=== PATIENT | female | born 1970 | race Caucasian/White ===

== ENCOUNTER 2016-10-23 15:07 | Inpatient (IN) | payer OTHER ==
[~2016-10-23] VITALS: Ht 170.2 cm; Wt 72.7 kg
[~2016-10-23 15:07] MED LIST: ASEN10TA9 SL; CYCL10TA9 PO; DEXT20TA8 PO; GABA-502 PO; LAMO100T2 PO; LAMO25TA PO; PANT40TA3 PO; PROP20TA5 PO
[2016-10-23 15:26] VITALS: BP 140/91; PULSE 75; RESP 12; O2SAT 96
--- NOTE | 2016-10-23 17:42 | ED.REPORT ---
HPI-Rash / Abscess Date of Service Oct 23, 2016 ED Provider: Doc,Ed MD History of Present Illness: discharged from [facility] in [place] yesterday. sent home on keflex and states has been taking the keflex. abscess opened at [facility] on 10/18/2016. has been doing a lot of walking since discharge, staying with kids on couch at present. Laurita Nichole is primary care. denies drug use Nursing Notes Stated Complaint: RECHECK/SEPTIC Chief Complaint: Skin Rash/Abscess Nursing Notes Reviewed: Yes Allergies: Coded Allergies: acetaminophen (Verified Allergy, Intermediate, itch and burn, 10/23/16) cefaclor (Verified Allergy, Intermediate, vomiting, 10/23/16) oxycodone (Verified Allergy, Intermediate, RASH-TOLERATES HYDROCODONE, MORPHINE, AND DILAUDID, 05/02/15) divalproex sodium (Unverified Allergy, Unknown, 05/07/16) Scheduled ([silver hydrosol]) 30 SPRAYS ORAL DAILY Cephalexin (Cephalexin) 500 Mg Capsule 500 MG PO QID Dextroamphetamine/Amphetamine (Amphetamine Mixed Salts) 20 Mg Tablet 20 MG PO TID Gabapentin (Gabapentin) 400 Mg Capsule 400 MG PO TID Pantoprazole DR (Pantoprazole DR) 40 Mg Tablet.dr 40 MG PO DAILY Propranolol HCl (Propranolol HCl) 20 Mg Tablet 20 MG PO BID Trazodone (Trazodone) 50 Mg Tablet 50 MG PO HS Miscellaneous Medications ([excedrin]) Unknown Strength Unknown Dose PO General Time Seen by MD: 17:41 Chief Complaint Red area, Other (cellulitis left leg) Onset Occurred: 1 week ago Past Medical History Past Medical History Notes: Seen 04/30 in ED, started on clinda for dental pain Past Medical History Anxiety Ulcers Reports: GERD Past Surgical History Bariatric surgery Gastric bypass - 2003 uterine prolapse Smoking History Current Every Day Smoker, Heavy Tobacco Smoker Social History Alcohol Use: Denies alcohol use Drug Use: Denies drug use Other Social History: Good social support, 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 Ambulatory Status Independent Review of Systems Basic Review of Systems : No dysuria, No frequency Psychiatric: Normal thought content Physical Exam Initial Vital Signs Vital Signs (First) Date Time Temp Pulse Resp B/P Pulse Ox O2 Delivery O2 Flow Rate FiO2 10/23/16 15:26 37.0 75 12 140/91 96 Room Air Initial VS: Reviewed, Vital signs normal Head / Eyes: Atraumatic, Normocephalic, PERRL ENT: Mucous membranes moist, Conjunctiva normal, No scleral icterus Neck: Supple, Non-tender, Full range of motion Respiratory: Breath sounds normal, Clear to auscultation, No respiratory distress Cardiovascular: Regular rate & rhythm, Heart sounds normal, Intact distal pulses Abdomen / GI: Soft, Non-tender, No guarding, No rebound, No distention Back: No CVA tenderness Lymphatic: No lymphadenopathy Extremities: Vascular intact, Neuro intact, No swelling, No tenderness Neurologic: Alert, Oriented, Nonfocal Psychiatric: Mood/affect normal, Behavior normal, Normal thought content General/Constitutional: Awake, Alert, No acute distress, Well appearing, Well developed, Well hydrated, Well nourished, Cooperative, Not toxic appearing Rash / Lesion Notes: left upper thigh has open sore with fibrin formation with upper thigh with erthyma. Multiple enlarged lymph nodes in groin area. ENT: Atraumatic, Airway patent, Mucous membranes moist, Pharynx NL Respiratory / Chest: Atraumatic, Breath sounds NL, Breath sounds = bilat Cardiovascular: Heart rate NL, Regular rhythm, Heart sounds NL, No gallop Interpretation & Diagnostics Lab Results Interpretation Result Diagram: 10/23/16180910/23/16 181 Test 10/23/16 18:10 White Blood Count 9.1th/mm3 (3.8-10.1) Red Blood Count 3.91mil/mm3 (3.90-5.20) Hemoglobin 9.8g/dL (12.0-15.6) Hematocrit 31.9% (35.0-46.0) Mean Corpuscular Volume 81.6fL (81-100) Mean Corpuscular Hemoglobin 25.1pg (27.0-35.0) Mean Corpuscular Hemoglobin Concent 30.7% (32.0-37.0) Red Cell Distribution Width 22.2% (12.3-15.4) Platelet Count 346bil/L (150-400) Neutrophils (%) (Auto) 53% (40-74) Lymphocytes (%) (Auto) 24% (14-46) Monocytes (%) (Auto) 16% (4-12) Eosinophils (%) (Auto) 3% (0-5) Basophils (%) (Auto) 0% (0-3) Myelocytes % 4% (0-0) Sodium Level 141mEq/L (134-144) Potassium Level 4.2mEq/L (3.5-5.2) Chloride Level 101mEq/L (97-108) Carbon Dioxide Level 27mmol/L (18-29) Blood Urea Nitrogen 10mg/dL (6-24) Creatinine 0.61mg/dL (0.57-1.00) Estimat Glomerular Filtration Rate 152mL/min (>59) Glucose Level 97mg/dL (60-99) Lactic Acid Level 1.8mmol/L (0.4-2.0) Calcium Level 9.2mg/dL (8.5-10.1) Total Bilirubin 0.2mg/dL (0.0-1.2) Aspartate Amino Transf (AST/SGOT) 30U/L (0-50) Alanine Aminotransferase (ALT/SGPT) 25U/L (0-32) Alkaline Phosphatase 92U/L (25-150) Total Protein 6.5g/dL (6.4-8.4) Albumin 3.2g/dL (3.4-5.0) X-Ray Interpretation Xray Interpretation: PROCEDURE: X-RAY LEFT FEMUR, TWO VIEWS ([id number]) INDICATIONS: cellulitis increased swelling TECHNIQUE: 2 views of the femur were acquired. COMPARISON: None. FINDINGS: Bones: No fractures or dislocations. No suspicious bony lesions. Soft tissues: No suspicious soft tissue calcifications or masses. No radiopaque foreign body is seen artifact from overlying sheets are seen in the IMPRESSION: No bony abnormality or radiopaque foreign body is seen. No air in soft tissues is seen. Dictated by: Channing Flores M.D. on 10/23/2016 at 19:05 Approved by: Channing Flores M.D. on 10/23/2016 at 19:07 Re-Eval/Medical Decision Med Decision/Clinical Course 46 year old female presents for evualation for left leg cellulitis after being discharged form [facility] yesterday for same. Patient states she has been taking her oral antibiotics. The erthyma on the left thigh is almost to the knee. The site has almost tripled in size acording to the orginal marking. Many enlarged lymph nodes in groin on the left side. When asked is she injected into site patient denies. Behavior may suggest otherwise. Body with pick sores. No sign of exczema or insect bite. Discharge & Departure Departure Notes care turned over to Dr. Keller, awaiting transport upstairs 2109 Impression: Primary Impression: Cellulitis Disposition: ADMITTED TO HOSPITAL Referrals: Laurita Nichole PA-C (PCP) EDSupervising Provider for APC: Poli Keller MD copies to: Laurita Nichole PA-C, Sue ARNP Oct 23, 2016 17:42
[2016-10-23 18:31] LABS: Mean Corpuscular Hemoglobin 25.1 pg (27.0-35.0); Mean Corpuscular Volume 81.6 fL (81-100)
[2016-10-23 18:35] LABS: Platelet Count 346 bil/L (150-400)
[2016-10-23] MEDS ORDERED: Vancomycin Dose per Pharmacist XX ONE (19:05)
--- NOTE | 2016-10-23 19:08 | DRSVH ---
PROCEDURE: X-RAY LEFT FEMUR, TWO VIEWS ([id number]) INDICATIONS: cellulitis increased swelling TECHNIQUE: 2 views of the femur were acquired. COMPARISON: None. FINDINGS: Bones: No fractures or dislocations. No suspicious bony lesions. Soft tissues: No suspicious soft tissue calcifications or masses. No radiopaque foreign body is see n artifact from overlying sheets are seen in the IMPRESSION: No bony abnormality or radiopaque foreign body is seen. No air in soft tissues is seen. Dictated by: Channing Flores M.D. on 10/23/2016 at 19:05 Approved by: Channing Flores M.D. on 10/23/2016 at 19:07
[2016-10-23] MEDS ORDERED: Vancomycin Inj 1,500 MG in 0.9% Sodium Chloride 500 ML IV ONE (19:10)
[2016-10-23 19:24] LABS: BASOPHILS % (AUTO) 0 % (0-3); EOSINOPHILS % (AUTO) 3 % (0-5); MONOCYTES % (AUTO) 16 % (4-12); NEUTROPHILS % (AUTO) 53 % (40-74)
[2016-10-23] MEDS: Vancomycin Dose per Pharmacist XX SCH (19:55)
[2016-10-23] MEDS ORDERED: Alum-Mag Hydrox-Simeth 30 mL Suspension PO PRN (19:55)
[2016-10-23 20:03] VITALS: BP 142/88; PULSE 69; RESP 18; O2SAT 100
--- NOTE | 2016-10-23 20:42 | PCM.HPMED ---
Subjective Date of Service Oct 23, 2016 Primary Provider: Admitting Physician: Alexsandra Blakely DO Primary Care Physician: Laurita Nichole PA-C Attending Physician: Alexsandra Blakely DO Admit Status: From the Emergency Department Chief Complaint: worsening lower extremity erythema following discharge from OSH History of Present Illness: 46yoF with history of PTSD, ADD, GERD presenting following discharge from [facility] with worsening left lower limb cellulitis s/p I&D. As per OSH HPI patient presented 10/18 (discharge 10/22) with complaints of myalgias and "abscesses" with main concern for left thigh abscess. As per report she used methamphetamine last 10/16 however patient denies this on current admission. Labs at this time were significant for leukocytosis (30k) with lactic acid 1.2 declining to 0.7, sodium 129 hgb 10. Culture results are not available from outside records. MRSA culture was negative, improved on ceftriaxone, and patient was discharged on keflex. Following discharge patient states that she went home and ate dinner. She took her keflex and when she awoke the next morning her left left had increased edema and erythema. She also notes worsening myalgias. She denies fevers, chills, nausea, vomiting, changes in bowel movements or urination. Review of Systems: complete review of systems obtained. positive as per HPI otherwise negative. Allergies Coded Allergies: cefaclor (Verified Allergy, Intermediate, vomiting, 10/23/16) oxycodone (Verified Allergy, Intermediate, RASH-TOLERATES HYDROCODONE, MORPHINE, AND DILAUDID, 05/02/15) divalproex sodium (Unverified Allergy, Unknown, 05/07/16) Home Medications Propranolol Lamotrigine Adderall Protonix Trazodone PMH PTSD ADD Hypotension GERD Per outside records IVDU however patient denies Distant history of methamphetamine use Surgical History Gastric bypass Breast augmentation Tubal ligation Family History Father history of boils History of PTSD / ADD Social History Occupation: unemployed, SSI application pe Hx Alcohol Use: No Hx Substance Use: No (Do smoke marijuana daily/for back pain) Smoking Status: Current Every Day Smoker, Heavy Tobacco Smoker Living Arrangement: with Family (Patient lives with daughter ) Exam Vital Signs Vital Sign - Last Date Time Temp Pulse Resp B/P Pulse Ox O2 Delivery O2 Flow Rate FiO2 10/23/16 20:03 36.7 69 18 142/88 100 Room Air Exam General: Alert, Oriented x3, no acute distress Eyes: PERRLA, sclera anicteric Mouth: moist mucous membranes, poor dentition Neck: supple, trachea midline, no thyromegaly Chest and lungs: CTA and percussion bilateral, no adventitious breath sounds, no crackles, no wheeze, good resp effort Cardiovascular: Normal S1 and S2, no M/R/G, regular rate and rhythm Pulses: Radial (present and equal), Dorsalis pedi (present and equal) MSK: As per below Extremities: left lower extremity 0-1+ pitting edema, left thight with abscess, phlegmon present, border present x2, erythema receding from larger, warm to touch, no crepitus, mild pain to palpation Skin: large tattoos upper extremities and back, left lower ext as above Neuro: grossly intact Psych: normal affect Lab and Diagnostics Result Diagram: 10/23/16180910/23/161809 X-Rays, CTs and MRIs Patient Name: CITLALY COLBY MR#: [id number] Location[place] [facility] [place]ing Phys: Criselda Gallo Date of Service: 10/23/16 1754 PROCEDURE: X-RAY LEFT FEMUR, TWO VIEWS ([id number]) INDICATIONS: cellulitis increased swelling TECHNIQUE: 2 views of the femur were acquired. COMPARISON: None. FINDINGS: Bones: No fractures or dislocations. No suspicious bony lesions. Soft tissues: No suspicious soft tissue calcifications or masses. No radiopaque foreign body is seen artifact from overlying sheets are seen in the IMPRESSION: No bony abnormality or radiopaque foreign body is seen. No air in soft tissues is seen. Assessment & Plan 46yoF with history of PTSD, ADD, GERD presenting following discharge from [facility] with worsening left lower limb cellulitis s/p I&D. Cellulitis, acute, POA -not meeting sepsis criteria -discharged day prior to presentation from outside facility (admit [facility] 10/18-10/22) -records reviewed and available in chart, call for culture results (AM team), MRSA screen was negative at OSH -given vancomycin, ceftriaxone and discharged on keflex with subsequent worsening of cellulitis -improvement seen following admission, pain is not out of proportion to exam -vancomycin started in ED, continue, pharmacy to dose -left lower extremity US in am -follow up blood cultures, consider CT scan with clinical worsening Normocytic anemia, unknown chronicity -history of anemia as per outside records -remains stable from recent admission -continue to monitor PTSD / ADD, chronic -continue lamotrigine, adderall -holding propranolol given h/o hypotension GERD, chronic -continue protonix Tobacco dependence, chronic -discussed cessation with patient, she wishes to quit -cut back to 0.5 pack per day -nicotine patch available upon request MED REC - Review required. Not consistent with patient stated medications. i.e. lamotrigine not listed on med rec completed prior to admission Pain Evaluation: Adequate Pain Control GI Prophylaxis: Proton Pump Inhibitor VTE Prophylaxis: Sub-Q Heparin (Unfractionated) Resuscitation Status: CPR: Attempt Resuscitation Alexsandra Blakely DO Oct 23, 2016 20:42
[2016-10-23] MEDS ORDERED: CEPH500C PO (21:08)
[2016-10-23] MEDS ORDERED: GABA-504 PO (21:08)
[2016-10-23] MEDS ORDERED: [UNRECOGNIZED DRUG - OTHER] ORAL (21:08)
[2016-10-23] MEDS ORDERED: excedrin PO (21:08)
[2016-10-23] MEDS ORDERED: TRAZ-115 PO (21:08)
[2016-10-23 21:25] VITALS: BP 142/88; PULSE 69; RESP 18; O2SAT 100
--- NOTE | 2016-10-23 21:27 | PCM.CONPHA ---
Subjective Date of Service: Oct 23, 2016 worsening lower extremity erythema following discharge from OSH Reason for Pharmacy Consult: Vancomycin Dosing Objective Vital Signs Date Time Temp Pulse Resp B/P Pulse Ox O2 Delivery O2 Flow Rate FiO2 10/23/16 20:03 36.7 69 18 142/88 100 Room Air 10/23/16 15:26 37.0 75 12 140/91 96 Room Air Weight (Kilograms): 67.27 Height (Feet): 5 Height (Inches): 7.00 Test 10/23/16 18:10 White Blood Count 9.1th/mm3 (3.8-10.1) Red Blood Count 3.91mil/mm3 (3.90-5.20) Hemoglobin 9.8g/dL (12.0-15.6) Hematocrit 31.9% (35.0-46.0) Mean Corpuscular Volume 81.6fL (81-100) Mean Corpuscular Hemoglobin 25.1pg (27.0-35.0) Mean Corpuscular Hemoglobin Concent 30.7% (32.0-37.0) Red Cell Distribution Width 22.2% (12.3-15.4) Platelet Count 346bil/L (150-400) Neutrophils (%) (Auto) 53% (40-74) Lymphocytes (%) (Auto) 24% (14-46) Monocytes (%) (Auto) 16% (4-12) Eosinophils (%) (Auto) 3% (0-5) Basophils (%) (Auto) 0% (0-3) Myelocytes % 4% (0-0) Sodium Level 141mEq/L (134-144) Potassium Level 4.2mEq/L (3.5-5.2) Chloride Level 101mEq/L (97-108) Carbon Dioxide Level 27mmol/L (18-29) Blood Urea Nitrogen 10mg/dL (6-24) Creatinine 0.61mg/dL (0.57-1.00) Estimat Glomerular Filtration Rate 152mL/min (>59) Glucose Level 97mg/dL (60-99) Lactic Acid Level 1.8mmol/L (0.4-2.0) Calcium Level 9.2mg/dL (8.5-10.1) Total Bilirubin 0.2mg/dL (0.0-1.2) Aspartate Amino Transf (AST/SGOT) 30U/L (0-50) Alanine Aminotransferase (ALT/SGPT) 25U/L (0-32) Alkaline Phosphatase 92U/L (25-150) Total Protein 6.5g/dL (6.4-8.4) Albumin 3.2g/dL (3.4-5.0) Assessment/Plan Assessment/Plan Vancomycin dosing per pharmacy Indication: abscess, possible sepsis Vancomcyin trough goal: 15-20 SCr: 0.61 Weight: 67.27 kg Height: 170.18 cm Loading dose of vancomcyin 1500 mg given at 1930. Maintenance dose -- give vancomycin 1250 mg Q12H. Trough ordered for 10/25/16 at 0700 prior to the 4th dose. Pharmacy to continue to monitor and dose vancomycin. Thank you, Tez Alarcon Pharmacist Tez Alarcon Oct 23, 2016 21:27
[2016-10-23 21:59] VITALS: BP 128/81; PULSE 72; RESP 18; O2SAT 99
--- NOTE | 2016-10-23 22:00 | NUR ---
Admit Pt brought by [facility] ED to floor on stretcher at 2140. Pt ambulated to bed. Pt rates pain at 8/10. Report Given by Swapnil Clinton RN.
[2016-10-24] VITALS (12 sets, daily range): BP systolic 128–161; BP diastolic 73–98; PULSE 61–80; RESP 12–20; O2SAT 96–100
[2016-10-24] MEDS: Heparin 5,000 Unit/mL Inj SUBQ SCH ×3 (00:53→16:18)
--- NOTE | 2016-10-24 06:06 | NUR ---
Tele Report from [employer] that patient had 15 beats of V Tach at 0554. Pt was in the bathroom at the time. Patient had zero complaints and VSS, BP 159/89. MD katz. Addendum: 10/24/16 at 0616 by CORAL WEBSTER RN Pt now complaining of 10/10 upper back pain. code number stamper ordered STAT 12 lead which is occurring now. Addendum: 10/24/16 at 0650 by CORAL WEBSTER RN ordered nitro and to inform of results. Results are that the Pt had 8/10 back pain before admin of nitro. 2-4 minutes after 1 dose nitro patient reported 0/10 back pain.
[2016-10-24 07:28] LABS: Mean Corpuscular Hemoglobin 25.1 pg (27.0-35.0); Mean Corpuscular Volume 81.5 fL (81-100); Platelet Count 331 bil/L (150-400)
[2016-10-24] MEDS: Vancomycin Dose per Pharmacist XX SCH (08:30)
[2016-10-24 08:38] LABS: BASOPHILS % (AUTO) 0 % (0-3); EOSINOPHILS % (AUTO) 6 % (0-5); MONOCYTES % (AUTO) 11 % (4-12); NEUTROPHILS % (AUTO) 53 % (40-74)
--- NOTE | 2016-10-24 09:13 | PCM.PNMED ---
Subjective Date of Service Oct 24, 2016 Subjective Pt reports the rash on her left thigh is improved. She denies any fever. This morning she does complain of a severe pain in between her shoulder blades which seems to be radiating from the back of her neck down. She denies any chest pain , shortness of breath, nausea, vomiting, abdominal pain, and palpitations. No other complaints or concerns at this time. Exam Vital Signs Vital Sign - Last Date Time Temp Pulse Resp B/P Pulse Ox O2 Delivery O2 Flow Rate FiO2 10/24/16 08:55 63 10/24/16 06:08 36.5 19 159/89 100 10/24/16 02:46 Room Air Intake and Output 10/23/16 10/23/16 10/24/16 Cumulative From/Thru 15:00 23:00 07:00 10/23/16 15:26 - 10/24/16 06:08 Intake Total 1300 ml 1300 ml Balance 1300 ml 1300 ml Intake Oral 1050 ml 1050 ml IV Total 250 ml 250 ml # Voids 3 3 Exam GENERAL: Pt appears to be in mild distress from her back pain, Pt laying in bed comfortably HEENT: AT/NC, PERRLA, EOMI, Mucus Membranes are moist CARDIAC: RRR; No M/R/G PULM: CTAB; No wheezes or rhonchi bilaterally ABD: Soft, Nontender, Nondistended, Positive bowel sounds in all quadrants, No Hepatosplenomegaly appreciated EXT: No C/C/E; No calf tenderness bilaterally SKIN: Large area of erythema with overlying calor and mild induration over the left anterior and medial thigh, no area of fluctuance noted NEURO: Alert and oriented x3; Following all commands PSYCH: Normal mood and affect IVs and Medications Medications Reviewed: Medications were reviewed in detail Lab and Diagnostics Result Diagram: 10/24/1662410/24/16624 X-Rays, CTs and MRIs Patient Name: CITLALY COLBY MR#: [id number] Location[place] [facility] [place] Ordering Phys: Criselda Gallo Date of Service: 10/23/16 712 PROCEDURE: X-RAY LEFT FEMUR, TWO VIEWS ([id number]) INDICATIONS: cellulitis increased swelling TECHNIQUE: 2 views of the femur were acquired. COMPARISON: None. FINDINGS: Bones: No fractures or dislocations. No suspicious bony lesions. Soft tissues: No suspicious soft tissue calcifications or masses. No radiopaque foreign body is seen artifact from overlying sheets are seen in the IMPRESSION: No bony abnormality or radiopaque foreign body is seen. No air in soft tissues is seen. Assessment & Plan 46yoF with history of PTSD, ADD, GERD presenting following discharge from [facility] with worsening left lower limb cellulitis s/p I&D. 1. Cellulitis, Left Lower Extremity - Continue IV Vancomycin - Check Procalcitonin and CRP now - Repeat CBC with diff in AM - Elevated LLE while pt is laying down or sitting - LLE US today - Blood cultures pending 2. Chest Pain, Acute - Pt is having pain in between her shoulder blades - STAT EKG reveals no EKG changes indicative of myocardial ischemia - Will give Aspirin 324 mg now - Will check Troponin q 6 hours x4 - Will order a CT angiogram of the chest to rule out aortic dissection and PE - Continue telemetry monitoring 3. Anemia, Chronic - Related to Methamphetamine use chronically? - Monitor 4. PTSD and ADD - Continue home Lamictal and Adderall 5. GERD - Continue Protonix 6. Methamphetamine Abuse - Pt counseled to quit on admission GI Prophylaxis: Proton Pump Inhibitor VTE Prophylaxis: Sub-Q Heparin (Unfractionated) Resuscitation Status: CPR: Attempt Resuscitation Dave Mead MD Oct 24, 2016 09:12
[2016-10-24] MEDS: Vancomycin Inj 1,250 MG in 0.9% Sodium Chloride 250 ML IV SCH ×2 (09:14→20:26)
[2016-10-24] MEDS: Amphetamines (Mixed) 20 mg Tablet PO SCH ×3 (09:15→20:26)
[2016-10-24] MEDS: Pantoprazole 40 mg ER24 Tablet PO SCH (09:15)
--- NOTE | 2016-10-24 10:12 | NUR ---
Back pain 0815 pt c/o 04/26 sharp pain between shoulder blades. SR 72 per nursery technician, BP 161/92 100% on RA. Lab called to draw trop per prior order. paged. Per , no repeat EKG at this time, to give nitro. 3 doses of nitro given with little relief. paged. To give morphine 2mg IV now. Morphine given with relief to 10/25. MD saw pt at bedside. 325mg ASA x1 given. Stat CT angio ordered. Pt VSS at 0850, SR per tele. Pt appearing more comfortable. To continue to monitor. Pt down to CT at 0940. Trop negative. Pt stable on return from CT. Addendum: 10/24/16 at 1125 by JAYLON LOWE RN Pt c/o of continued back pain 01/24 at 1110. Per , no new orders, to continue with pain meds as ordered and as needed.
--- NOTE | 2016-10-24 10:38 | DRSVH ---
PROCEDURE: CT ANG CHEST/ABD W/WO CONTRAST ([id number]) INDICATIONS: Rule out Aortic Dissection and PE TECHNIQUE: Precontrast 5 mm thick sections acquired from the lung apices to the iliac crests. After the adminis tration of intravenous contrast, 3 mm thick sections again acquired from the lung apices to the iliac crests. 3-dimensional maximum intensity projection (MIP) oblique sagittal and coronal reformats wer e then acquired, and/or 3-dimensional volume rendering reformats. For radiation dose reduction, the following was used: automated exposure control. COMPARISON: None. FINDINGS: Image quality: Excellent. AORTA: Normal appearance. No evidence of dissection or aneurysm. No periaortic hemorrhage seen. CHEST: Lungs and pleura: No acute airspace opacities. Minimal scarring/atelectasis seen in the right lung b ase No pleural effusions or pneumothorax. Central and peripheral airways are patent and normal in c aliber. Mediastinum: Heart size is normal. No pericardial effusion. No mediastinal or hilar adenopathy by size criteria. Central pulmonary arteries are normal in size. No filling defects to suggest pulmonar y embolism Esophagus is normal in caliber. No hiatal hernias. Bones and chest wall: No axillary adenopathy by size criteria. Bilateral breast prostheses. No romero spicious bony lesions. No vertebral body compression fractures. ABDOMEN: Vasculature: Celiac trunk and mesenteric arteries are patent. Renal arteries are also patent. Solid organs: Liver and spleen are normal in size. Gallbladder negative. Biliary system is non dil ated. Pancreas enhances normally. No adrenal nodules. Both kidneys are normal in size and enhancem ent, without hydronephrosis. Peritoneum and bowel: No free fluid or air. Bowel loops are normal in caliber and wall thickness. Nodes and vessels: No retroperitoneal or mesenteric adenopathy by size criteria. Inferior vena cava is normal in morphology. Bones: No suspicious bony lesions. No vertebral body compression fractures. Miscellaneous: No ventral hernias. IMPRESSION: Negative examination. No evidence of aortic dissection. No evidence of pulmonary embolism. Dictated by: Yobany Garcia M.D. on 10/24/2016 at 10:15 Approved by: Yobany Garcia M.D. on 10/24/2016 at 10:36
[2016-10-24] MEDS: Ondansetron 2 mg/mL 2 mL Inj IVPUSH PRN (11:17)
--- NOTE | 2016-10-24 11:25 | NUR ---
Rash Per MD, no new orders for facial rash around mouth. To continue to monitor.
--- NOTE | 2016-10-24 11:50 | DRSVH ---
PROCEDURE: US EXTREMITY SONOGRAM LIMITED ([id number]) INDICATIONS: abscess TECHNIQUE: Real-time scanning was performed of the left lower extremity, with image documentation. COMPARISON: None. FINDINGS: There is subcutaneous edema. No focal fluid collection to suggest abscess IMPRESSION: Subcutaneous edema without evidence for abscess. Dictated by: Yobany Garcia M.D. on 10/24/2016 at 11:47 Approved by: Yobany Garcia M.D. on 10/24/2016 at 11:48
--- NOTE | 2016-10-24 14:30 | NUR ---
Assumed care of patient Pt currently sleeping.
--- NOTE | 2016-10-24 15:53 | NUR ---
Social Work Note: Screen Note Data& Assessment: EMR reviewed. Patient is a 46 y/o female admitted on 10/23/16 for Left Leg Cellulitis. Pt has [employer] for insurance coverage and sees Laurita Nichole PA-C for primary care. Pt lives with family and is independent at baseline. Pt is currently independent in her room. No discharge needs identified at this time. SW to continue to follow if any needs arise. Plan: Anticipated discharge home via POV when medically ready. No discharge needs identified at this time. SW to continue to follow if any needs arise. Margot Whittaker, SOFI, ACM
[2016-10-25] VITALS (7 sets, daily range): BP systolic 131–143; BP diastolic 73–86; PULSE 65–92; RESP 14–18; O2SAT 95–99
[2016-10-25] MEDS: Heparin 5,000 Unit/mL Inj SUBQ SCH ×3 (00:35→16:43)
--- NOTE | 2016-10-25 03:18 | NUR ---
Pain/Anxiety Pt has c/o severe pain tonight from tense muscles in neck and shoulders, morphine and tramadol somewhat effective. Pt has expressed extreme anxiety about current situation and personal issues and concerns about getting out of [facility]. Pt mentioned Dr Heidy Allen at [facility], pt states it is important that they are contacted. Pt also expresses concern about not being on lamotrigine since admit.
[2016-10-25] MEDS ORDERED: Vancomycin Serum Trough XX ONE (07:00)
[2016-10-25 07:37] LABS: Mean Corpuscular Hemoglobin 24.6 pg (27.0-35.0); Mean Corpuscular Volume 78.6 fL (81-100); Platelet Count 256 bil/L (150-400)
[2016-10-25] MEDS: Amphetamines (Mixed) 20 mg Tablet PO SCH ×3 (08:09→20:46)
[2016-10-25] MEDS: Pantoprazole 40 mg ER24 Tablet PO SCH (08:10)
[2016-10-25] MEDS: Vancomycin Dose per Pharmacist XX SCH (08:30)
[2016-10-25 08:37] LABS: BASOPHILS % (AUTO) 1 % (0-3); EOSINOPHILS % (AUTO) 6 % (0-5); MONOCYTES % (AUTO) 12 % (4-12); NEUTROPHILS % (AUTO) 56 % (40-74)
[2016-10-25] MEDS: Vancomycin Inj 1,250 MG in 0.9% Sodium Chloride 250 ML IV SCH ×2 (08:53→20:46)
[2016-10-25] MEDS: Polyethylene Glycol (PEG) 17 Gm Powder PO PRN (09:47)
--- NOTE | 2016-10-25 10:07 | PCM.PNMED ---
Subjective Date of Service Oct 25, 2016 Subjective Pt reports her left thigh appears and feels better. She denies any fever. No other complaints or concerns at this time. Exam Vital Signs Vital Sign - Last Date Time Temp Pulse Resp B/P Pulse Ox O2 Delivery O2 Flow Rate FiO2 10/25/16 09:41 66 10/25/16 06:11 36.5 16 143/82 97 Room Air 10/24/16 17:19 Intake and Output 10/24/16 10/24/16 10/25/16 Cumulative From/Thru 15:00 23:00 07:00 10/23/16 15:26 - 10/25/16 06:11 Intake Total 1020 ml 1155 ml 3475 ml Balance 1020 ml 1155 ml 3475 ml Intake Oral 1020 ml 600 ml 2670 ml IV Total 555 ml 805 ml # Voids 5 8 Exam GENERAL: NAD, Pt laying in bed comfortably HEENT: AT/NC, PERRLA, EOMI, Mucus Membranes are moist CARDIAC: RRR; No M/R/G PULM: CTAB; No wheezes or rhonchi bilaterally EXT: No C/C/E; No calf tenderness bilaterally SKIN: Erythema with mild overlying calor over the rosanna-medial left thigh NEURO: Alert and oriented x3; Following all commands IVs and Medications Medications Reviewed: Medications were reviewed in detail Lab and Diagnostics Result Diagram: 10/25/1670410/25/16704 X-Rays, CTs and MRIs Patient Name: CITLALY COLBY MR#: [id number] [place] [facility] [place] Phys: Criselda Gallo Date of Service: 10/23/161753 PROCEDURE: X-RAY LEFT FEMUR, TWO VIEWS ([id number]) INDICATIONS: cellulitis increased swelling TECHNIQUE: 2 views of the femur were acquired. COMPARISON: None. FINDINGS: Bones: No fractures or dislocations. No suspicious bony lesions. Soft tissues: No suspicious soft tissue calcifications or masses. No radiopaque foreign body is seen artifact from overlying sheets are seen in the IMPRESSION: No bony abnormality or radiopaque foreign body is seen. No air in soft tissues is seen. Assessment & Plan 46yoF with history of PTSD, ADD, GERD presenting following discharge from [facility] with worsening left lower limb cellulitis s/p I&D. 1. Cellulitis, Left Lower Extremity - Continue IV Vancomycin for 1 more day, and consider switching to PO ABX in AM - Repeat CBC with diff in AM - Elevated LLE while pt is laying down or sitting - LLE US today - Blood cultures negative thus far 2. Chest Pain, Acute - Resolved - Non cardiac - Pt is having pain in between her shoulder blades - STAT EKG revealed no EKG changes indicative of myocardial ischemia - Troponin was negative x4 - CT Angiogram of the chest was negative for PE and aortic dissection 3. Anemia, Chronic - Stable - Related to Methamphetamine use chronically? - Monitor 4. PTSD and ADD - Continue home Lamictal and Adderall 5. GERD - Continue Protonix 6. Methamphetamine Abuse - Pt counseled to quit on admission 7. Disposition - Anticipate discharge to home in 2 days or so GI Prophylaxis: Proton Pump Inhibitor VTE Prophylaxis: Sub-Q Heparin (Unfractionated) Resuscitation Status: CPR: Attempt Resuscitation Dave Mead MD Oct 25, 2016 10:07
--- NOTE | 2016-10-25 10:50 | NUR ---
Social Work-readiness for discharge: Data:EMR reviewed. Pt is on day 2 of hospitalization for left leg cellulitis per H&P. Pt is not medically stable anticipate 1-2 days. SW met with pt at bedside, SW role explained. Pt confirms that she lives with her daughter and will return there at discharge. Pt is independent at baseline and has no HH/SNF history. SW discussed DPOA/ advanced directive, pt states she has not completed this and is not interested in any information at this time. SW discussed pt's Meth use. Pt confirms that she only uses occasionally and does not think that this is a problem. Pt states she is not interested in any resources at this time. Pt is interested in getting a copy of medical records. SW provided pt with form to fill out for this. Pt's daughter to provide transport home. SW provided phone number and plan on white board in room. No anticipated discharge needs. SW will continue to follow if needs arise. Assessment:Pt who is independent at baseline. Plan:Pt to discharge home when medically stable via pOV. Pt declining any CD resources at this time. No anticipated discharge needs. SW will continue to follow if needs arise. FRANCISCO Brown
--- NOTE | 2016-10-25 11:18 | PCM.PHAPRO ---
Progress worsening lower extremity erythema following discharge from OSH Vancomycin trough returned within range at 14.8. Next trough on 10/28 at 0700. Pharmacy will continue to monitor. Terrell Cunningham Pharm.D Oct 25, 2016 11:17
[2016-10-25] MEDS: Ondansetron 2 mg/mL 2 mL Inj IVPUSH PRN (11:32)
--- NOTE | 2016-10-25 13:00 | NUR ---
Migraine Pt has been c/o a migraine OLIVIER since this Am. Morphine and Ultram were ineffective. Pt reports that pain has decreased from 10/10 to 5/10 after APAP. Pt is also using a K pad, which is helping. Pt appears much more comfortable and is now eating for the first time today. Will continue to monitor.
--- NOTE | 2016-10-25 16:00 | NUR ---
Panic attack Pt started to have a panic attack related to family issues and possible homelessness. Pt unable to calm down on her own, crying hysterically. Hospitalist paged for medication. Social work notified. Pt does not wish to speak with a insulation applicator at this time.
[2016-10-25] MEDS: LORazepam 0.5 mg Tablet PO PRN (16:43)
[2016-10-26] VITALS (8 sets, daily range): BP systolic 137–151; BP diastolic 80–92; PULSE 70–92; RESP 16–20; O2SAT 96–100
[2016-10-26] MEDS: Heparin 5,000 Unit/mL Inj SUBQ SCH ×3 (00:41→16:32)
--- NOTE | 2016-10-26 04:30 | NUR ---
Anxiety/Pain Pt has had very good pain and anxiety control tonight. Pt has been able to sleep well. Pt hasn't had any migraine and is primarily requesting morphine regularly. Pt feels more in control about current situation, and is eager to speak with case management and start putting her life back together.
[2016-10-26] MEDS: Ondansetron 2 mg/mL 2 mL Inj IVPUSH PRN (06:28)
[2016-10-26] MEDS: LORazepam 0.5 mg Tablet PO PRN ×2 (06:28→20:29)
[2016-10-26 06:40] LABS: Mean Corpuscular Volume 80.8 fL (81-100); Platelet Count 361 bil/L (150-400)
[2016-10-26 07:54] LABS: NEUTROPHILS % (AUTO) 57 % (40-74)
[2016-10-26 07:55] LABS: BASOPHILS % (AUTO) 0 % (0-3); EOSINOPHILS % (AUTO) 5 % (0-5); MONOCYTES % (AUTO) 10 % (4-12)
[2016-10-26] MEDS: Vancomycin Dose per Pharmacist XX SCH (08:30)
[2016-10-26] MEDS: Amphetamines (Mixed) 20 mg Tablet PO SCH ×3 (09:22→20:29)
[2016-10-26] MEDS: Pantoprazole 40 mg ER24 Tablet PO SCH (09:22)
[2016-10-26] MEDS: Vancomycin Inj 1,250 MG in 0.9% Sodium Chloride 250 ML IV SCH ×2 (09:30→20:29)
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
--- NOTE | 2016-10-26 14:20 | PCM.PNMED ---
Subjective Date of Service Oct 26, 2016 Subjective Left thigh feels better but is still swollen and painful. No fevers or chills, nausea or diarrhea. No abdomen or chest pain. No cough. No overnight events. Exam Vital Signs Vital Sign - Last Date Time Temp Pulse Resp B/P Pulse Ox O2 Delivery O2 Flow Rate FiO2 10/26/16 12:30 92 10/26/16 10:58 36.2 20 149/85 96 Room Air 10/24/16 17:19 Intake and Output 10/25/16 10/25/16 10/26/16 Cumulative From/Thru 15:00 23:00 07:00 10/23/16 15:26 - 10/26/16 06:22 Intake Total 1640 ml 683 ml 5798 ml Balance 1640 ml 683 ml 5798 ml Intake Oral 1440 ml 400 ml 4510 ml IV Total 200 ml 283 ml 1288 ml # Voids 4 4 16 Exam Alert and oriented. No distress. Fluent speech. Lungs are clear with ormal effort heart regular without murmur abdomen soft and non tender. There is no [edal edema. Left thingh can filling and closing machine tender and indurated. Tenders. No obvious fluctuance. Multiple skin excoriations and tattoos. IVs and Medications Medications Reviewed: Medications were reviewed in detail Lab and Diagnostics Result Diagram: 10/26/16 0555 10/26/16 0555 X-Rays, CTs and MRIs Patient Name: CITLLAY COLBY MR#: [id number] [place] [facility] [place] Phys: Criselda Gallo Date of Service: 10/23/16 488 PROCEDURE: X-RAY LEFT FEMUR, TWO VIEWS ([id number]) INDICATIONS: cellulitis increased swelling TECHNIQUE: 2 views of the femur were acquired. COMPARISON: None. FINDINGS: Bones: No fractures or dislocations. No suspicious bony lesions. Soft tissues: No suspicious soft tissue calcifications or masses. No radiopaque foreign body is seen artifact from overlying sheets are seen in the IMPRESSION: No bony abnormality or radiopaque foreign body is seen. No air in soft tissues is seen. Assessment & Plan 46yoF with history of PTSD, ADD, GERD presenting following discharge from [facility] with worsening left lower limb cellulitis s/p I&D. #. Cellulitis, Left Lower Extremity. POA. Improving. - Continue IV Vancomycin - follow CBC with diff daily - Elevated LLE while pt is laying down or sitting - LLE US today - Blood cultures negative thus far #. Chest Pain, Acute. POA. Resolved. - Resolved - Non cardiac - Pt is having pain in between her shoulder blades - STAT EKG revealed no EKG changes indicative of myocardial ischemia - Troponin was negative x4 - CT Angiogram of the chest was negative for PE and aortic dissection No further work up. #. Anemia, Chronic. POA - Stable - Related to Methamphetamine use chronically? - Monitor No further work up. #. PTSD and ADD, POA. - Continue home Lamictal and Adderall #. GERD - Continue Protonix #. Methamphetamine Abuse - Pt counseled to quit on admission #. Disposition - Anticipate discharge to home in 2 days or so Pain Evaluation: Adequate Pain Control GI Prophylaxis: Proton Pump Inhibitor VTE Prophylaxis: Sub-Q Heparin (Unfractionated) Resuscitation Status: CPR: Attempt Resuscitation Junaid Guzman MD Oct 26, 2016 14:20
[2016-10-26] MEDS: Polyethylene Glycol (PEG) 17 Gm Powder PO PRN (17:09)
--- NOTE | 2016-10-26 18:39 | NUR ---
Pain- Complained of generalized discomfort in leg, neck and back. Denies headache. Requesting pain med, which doesn't totally take away discomfort. Patient states, "I have pain from Fibromyalgia." Up ad beth in room and appears to be steady on feet. Patient talking about making plans to find housing, contacting [facility]. doctor,etc. after discharge.
[2016-10-27] MEDS: Heparin 5,000 Unit/mL Inj SUBQ SCH ×2 (01:22→08:02)
[2016-10-27 02:11] VITALS: BP 131/84; PULSE 84; RESP 16; O2SAT 97
[2016-10-27 04:39] VITALS: PULSE 83
--- NOTE | 2016-10-27 05:06 | NUR ---
Pain/Anxiety Pt has had some pain flare ups, morphine effective, no OLIVIER tonight. Pt is still expressing anxiety about homelessness, states that if they are d/c, that they will be sleeping on the [address] somewhere. Pt is wishing to stay at the hospital longer so they have more time to find a place to land.
[2016-10-27 06:40] VITALS: BP 116/70; PULSE 66; RESP 16; O2SAT 96
[2016-10-27 06:43] LABS: Mean Corpuscular Hemoglobin 24.9 pg (27.0-35.0); Mean Corpuscular Volume 80.8 fL (81-100); Platelet Count 422 bil/L (150-400)
[2016-10-27] MEDS ORDERED: 0.9% Sodium Chloride 250 ML ONE (07:48)
[2016-10-27] MEDS: Vancomycin Inj 1,250 MG in 0.9% Sodium Chloride 250 ML IV SCH (08:01)
[2016-10-27] MEDS: Pantoprazole 40 mg ER24 Tablet PO SCH (08:02)
[2016-10-27] MEDS: Vancomycin Dose per Pharmacist XX SCH (08:03)
[2016-10-27] MEDS: Amphetamines (Mixed) 20 mg Tablet PO SCH (08:03)
[2016-10-27 08:07] LABS: BASOPHILS % (AUTO) 1 % (0-3); EOSINOPHILS % (AUTO) 7 % (0-5); MONOCYTES % (AUTO) 11 % (4-12); NEUTROPHILS % (AUTO) 57 % (40-74)
[2016-10-27] MEDS: LORazepam 0.5 mg Tablet PO PRN (08:21)
--- NOTE | 2016-10-27 11:35 | PCM.DIMED ---
Discharge Instructions Date of Service Oct 27, 2016 Dates of Hospitalization Oct 23, 2016 at 20:16 Discharge Diagnosis Discharge Diagnosis #. Cellulitis, Left Lower Extremity #. Anemia, Chronic. #. PTSD #. ADD #. GERD #. Methamphetamine Abuse Diet No restrictions Activity No restrictions Patient Instructions See your doctor within a week. Follow-up Provider: Laurita Nichole PA-C Follow-up with PCP in: 1 week Junaid Guzman MD Oct 27, 2016 11:35
[2016-10-27] MEDS ORDERED: SULF1TAB7 PO (11:36)
--- NOTE | 2016-10-27 14:04 | NUR ---
Social Work Note: Discharge Data& Assessment: Per pt is medically ready to discharge. Wendy Haddad is a 46 year old female admitted on 10/23/2016 for left leg cellulitis. Per pt is medically ready for discharge. FAVIO met with pt at bedside to confirm discharge plan and assess for any unmet needs. Pt plans to go to her group therapy appointment today at 4p.m. through [facility]. Per pt request, SW attempted to call her counselor Bernie and inform her of pt discharge and that she will make it to her appointment this afternoon, message left for Bernie, awaiting phone call back. Pt preferred preference for pharmacy is [facility] in [place], SW faxed prescription for antibiotic to pharmacy to have filled, original script given to pt. Pt confirms she plans to take a taxi to [facility] and they will store her belongings there until she is able to find consistent housing. Pt denies any other needs. Pt reminded of resources and crisis line number provided yesterday. No other discharge needs identified. Plan: Per pt is medically ready to discharge home via private pay taxi to her therapy appointment in [place]. Pt provided with resources. Pt denies any other needs. No other discharge needs identified. FRANCISCO Lopez
--- NOTE | 2016-10-27 14:30 | NUR ---
Discharge Patient discharged. Discharge instructions and follow up discussed with patient. Patient acknowledged the antibiotic prescription was sent to [facility] by Social work. Patient stated the MD had told her a taxi would be provided for her. Social work contacted about taxi and Vicki stated patient did not qualify for a free taxi. Patient provided with numbers for 2 local taxi companies and she was able to contact one on her own. Patient assisted to main entrance with her belongings and was awaiting her taxis arrival.
--- NOTE | 2016-10-27 14:45 | NUR ---
RE Discharge Patient in a hurry to leave the floor at discharge and RN did not see she had Meds in the pharmacy. RN immediately went to try to catch patient before she left the property via taxi and she was already gone. RN attempted to call the phone number listed in the chart and it was not answered and it was not the patients name on the voice mail so was uncomfortable leaving a message on this number. [facility] pharmacy called and asked to let patient know she had left home medications here and to follow up at [facility].
[2016-10-28] MEDS ORDERED: Vancomycin Serum Trough XX ONE (07:00)
--- NOTE | 2016-10-28 11:23 | PCM.DC.MED ---
Discharge Summary Date of Service Oct 27, 2016 Dates of Hospitalization Date of Hospital Admission Oct 23, 2016 at 20:16 Date of Discharge: Oct 27, 2016 Providers: Admitting Physician: Alexsandra Blakely DO Primary Care Physician: Laurita Nichole PA-C Attending Physician: Alexsandra Blakely DO Diagnosis at Time of Discharge Diagnosis at Time of Discharge #. Cellulitis, Left Lower Extremity #. Anemia, Chronic. #. PTSD #. ADD #. GERD #. Methamphetamine Abuse Consultations None Procedures XRay, CTs & MRIs Patient Name: CITLALY COLBY MR#: [id number] [place] [facility] [place] Phys: Criselda Gallo Date of Service: 10/23/16 1754 PROCEDURE: X-RAY LEFT FEMUR, TWO VIEWS ([id number]) INDICATIONS: cellulitis increased swelling TECHNIQUE: 2 views of the femur were acquired. COMPARISON: None. FINDINGS: Bones: No fractures or dislocations. No suspicious bony lesions. Soft tissues: No suspicious soft tissue calcifications or masses. No radiopaque foreign body is seen artifact from overlying sheets are seen in the IMPRESSION: No bony abnormality or radiopaque foreign body is seen. No air in soft tissues is seen. Brief History 46yoF with history of PTSD, ADD, GERD presenting following discharge from [facility] with worsening left lower limb cellulitis s/p I&D. As per OSH HPI patient presented 10/18 (discharge 10/22) with complaints of myalgias and "abscesses" with main concern for left thigh abscess. As per report she used methamphetamine last 10/16 however patient denies this on current admission. Labs at this time were significant for leukocytosis (30k) with lactic acid 1.2 declining to 0.7, sodium 129 hgb 10. Culture results are not available from outside records. MRSA culture was negative, improved on ceftriaxone, and patient was discharged on keflex. Following discharge patient states that she went home and ate dinner. She took her keflex and when she awoke the next morning her left left had increased edema and erythema. She also notes worsening myalgias. She denies fevers, chills, nausea, vomiting, changes in bowel movements or urination. Hospital Course 46yoF with history of PTSD, ADD, GERD presenting following discharge from [facility] with worsening left lower limb cellulitis s/p I&D. #. Cellulitis, Left Lower Extremity. POA. Improving. - Continue IV Vancomycin - follow CBC with diff daily - Elevated LLE while pt is laying down or sitting - LLE US today - Blood cultures negative thus far This improved throughout the hospitalization. The day of discharge there is still some induration but no drainage or erythema. #. Chest Pain, Acute. POA. Resolved. - Resolved - Non cardiac - Pt is having pain in between her shoulder blades - STAT EKG revealed no EKG changes indicative of myocardial ischemia - Troponin was negative x4 - CT Angiogram of the chest was negative for PE and aortic dissection No further work up. No recurrent symptoms. #. Anemia, Chronic. POA - Stable - Related to Methamphetamine use chronically? - Monitor No further work up. This remained stable as well. #. PTSD and ADD, POA. - Continue home Lamictal and Adderall #. GERD - Continue Protonix #. Methamphetamine Abuse - Pt counseled to quit on admission #. Disposition -Home with close follow-up as scheduled tomorrow with Laurita Nichole Exam Vital Signs (Last) Date Time Temp Pulse Resp B/P Pulse Ox O2 Delivery O2 Flow Rate FiO2 10/27/16 06:40 36.6 66 16 116/70 96 Room Air 10/24/16 17:19 Exam Patient was seen and examined on the day of discharge Test 10/23/16 18:10 10/24/16 06:25 10/25/16 02:05 10/25/16 07:05 Lactic Acid Level 1.8mmol/L (0.4-2.0) Total Bilirubin 0.2mg/dL (0.0-1.2) Aspartate Amino Transf (AST/SGOT) 30U/L (0-50) Alanine Aminotransferase (ALT/SGPT) 25U/L (0-32) Alkaline Phosphatase 92U/L (25-150) Total Protein 6.5g/dL (6.4-8.4) Albumin 3.2g/dL (3.4-5.0) C-Reactive Protein 2.8mg/dL (0.0-0.5) Procalcitonin 0.14ng/mL (0.00-0.08) Troponin T < 0.010ug/L (0.0-0.011) Vancomycin Level Trough 14.8mcg/mL Test 10/26/16 05:55 10/27/16 06:05 Metamyelocytes % 2% (0-0) White Blood Count 8.5th/mm3 (3.8-10.1) Red Blood Count 4.26mil/mm3 (3.90-5.20) Hemoglobin 10.6g/dL (12.0-15.6) Hematocrit 34.4% (35.0-46.0) Mean Corpuscular Volume 80.8fL (81-100) Mean Corpuscular Hemoglobin 24.9pg (27.0-35.0) Mean Corpuscular Hemoglobin Concent 30.8% (32.0-37.0) Red Cell Distribution Width 20.7% (12.3-15.4) Platelet Count 422bil/L (150-400) Neutrophils (%) (Auto) 57% (40-74) Lymphocytes (%) (Auto) 20% (14-46) Monocytes (%) (Auto) 11% (4-12) Eosinophils (%) (Auto) 7% (0-5) Basophils (%) (Auto) 1% (0-3) Band Neutrophils % 2% (1-5) Myelocytes % 2% (0-0) Sodium Level 139mEq/L (134-144) Potassium Level 4.9mEq/L (3.5-5.2) Chloride Level 98mEq/L (97-108) Carbon Dioxide Level 27mmol/L (18-29) Blood Urea Nitrogen 8mg/dL (6-24) Creatinine 0.62mg/dL (0.57-1.00) Estimat Glomerular Filtration Rate 149mL/min (>59) Glucose Level 100mg/dL (60-99) Calcium Level 9.4mg/dL (8.5-10.1) Discharge Medications Discharge Medications ([silver hydrosol]) 30 SPRAYS ORAL DAILY (Reported) Dextroamphetamine/Amphetamine (Amphetamine Mixed Salts) 20 Mg Tablet 20 MG PO TID (Reported) Gabapentin (Gabapentin) 400 Mg Capsule 400 MG PO TID (Reported) Pantoprazole DR (Pantoprazole DR) 40 Mg Tablet.dr 40 MG PO DAILY (Reported) Propranolol HCl (Propranolol HCl) 20 Mg Tablet 20 MG PO BID (Reported) Sulfamethoxazole/Trimeth 800-160 mg (Bactrim DS) 1 Each Tablet 1 TABLET PO BID Prescribed by: JUNAID CORREA MD Trazodone (Trazodone) 50 Mg Tablet 50 MG PO HS (Reported) Miscellaneous Medications ([excedrin]) Unknown Strength Unknown Dose PO (Reported) Followup Plan Disposition: Home Discharge Diet: No restrictions Discharge Activity: No restrictions Patient Instructions See your doctor within a week. Follow-up Provider: Laurita Nichole PA-C Follow-up with PCP in: 1 week Time spent 35 minutes Junaid Correa MD Oct 28, 2016 11:23
== END 2016-10-27 14:25 | disposition home or self-care (01) | DRG 603 ==
LOC: SED 15:07 → MOC 20:16
PROVIDERS: ADMIT Internal Medicine; ATTEND Internal Medicine
DX: L03.116 Cellulitis of left lower limb (principal); D64.9 Anemia, unspecified; F43.10 Post-traumatic stress disorder, unspecified; F98.8 Other specified behavioral and emotional disorders with onset usually occurring in childhood and adolescence; K21.9 Gastro-esophageal reflux disease without esophagitis; F17.200 Nicotine dependence, unspecified, uncomplicated; F12.90 Cannabis use, unspecified, uncomplicated; F15.90 Other stimulant use, unspecified, uncomplicated; Z98.84 Bariatric surgery status